=== PATIENT | female | born 1960 ===

== ENCOUNTER 2020-04-29 10:32 | Emergency (ER) | payer OTHER ==
[~2020-04-29] VITALS: Ht 152.4 cm; Wt 72.6 kg
[2020-04-29] MEDS ORDERED: ATORVASTATIN CA20 MG (11:07)
[2020-04-29] MEDS ORDERED: FLUOXETINE HCL40 MG (11:07)
[2020-04-29] MEDS ORDERED: LORAZEPAM1 MG (11:08)
[2020-04-29] MEDS ORDERED: CLINDAMYCIN HC150 MG PO (13:47)
[2020-04-29] MEDS ORDERED: INTESTINEX680 M2 PO (13:47)
== END 2020-04-29 14:09 | disposition home or self-care (01) ==
LOC: ER 10:32
DX: S01.02XA Laceration with foreign body of scalp, initial encounter (principal); W01.198A Fall on same level from slipping, tripping and stumbling with subsequent striking against other object, initial encounter; Y93.89 Activity, other specified; Y92.018 Other place in single-family (private) house as the place of occurrence of the external cause; Y99.8 Other external cause status

== ENCOUNTER 2020-05-05 11:52 | Emergency (ER) | payer OTHER ==
[~2020-05-05] VITALS: Ht 152.4 cm; Wt 72.6 kg
[~2020-05-05 11:52] MED LIST: ATORVASTATIN CA20 MG; CLINDAMYCIN HC150 MG PO; FLUOXETINE HCL40 MG; INTESTINEX680 M2 PO; LORAZEPAM1 MG
== END 2020-05-05 14:32 | disposition home or self-care (01) ==
LOC: ER 11:52
DX: Z48.02 Encounter for removal of sutures (principal)